=== PATIENT | male | born 1955 | race Caucasian/White ===

== ENCOUNTER 2022-11-15 12:51 | Emergency (ER) | payer MEDICARE, OTHER ==
[2022-11-15] MEDS ORDERED: predniSONE 20 MG TAB ONE (13:35)
[2022-11-15] MEDS ORDERED: Ibuprofen 200 MG TAB ONE (13:35)
== END 2022-11-15 13:40 | disposition home or self-care (01) ==
LOC: ERS 12:51
DX: M43.6 Torticollis (principal); F17.210 Nicotine dependence, cigarettes, uncomplicated; Z79.82 Long term (current) use of aspirin
CPT/HCPCS: 99283; J7512

== ENCOUNTER 2023-01-24 21:28 | Inpatient (IN) | payer MEDICARE, OTHER ==
[~2023-01-24 21:28] MED LIST: Iopamidol 370 76% 100 ML VIAL ONE
[2023-01-24] MEDS ORDERED: fentaNYL 50 mcg/mL 1 mL Vial ONE (22:39)
[2023-01-24] MEDS ORDERED: Ondansetron PF 4 MG/2 ML Vial ONE (23:39)
[2023-01-24 23:59] LABS: #Basophils 0.1 thou/uL (0.0-0.2); #Eosinphils 0.1 thou/uL (0.0-0.7); #Monocytes 1.3 thou/uL (0.11-0.59); #Neutrophils 9.4 thou/uL (1.40-6.50); %Basophils 0.7 % (0.0-1.0); %Eosinophils 1.2 % (0.0-10.0); %Lymphocytes 9.7 % (21.0-51.0); %Monocytes 10.4 % (0.0-10.0); %Neutrophils 76.8 % (42.0-75.0); Hemoglobin 11.4 g/dL (14.0-18.0); Mean Corpuscular HGB CONC 31.1 g/dL (32.0-36.0); Mean Corpuscular Hemoglobin 25.3 pg (27.0-31.0); Mean Corpuscular Volume 81.4 fl (78.0-98.0); Mean Platelet Volume 8.8 fL (7.4-10.4); Platelet Count 462 10x3/uL (130-400); RBC Distribution Width 15.7 % (11.5-14.5); Red Blood Cell (RBC) Count 4.51 mill/uL (4.70-6.10); White Blood Cell (WBC) Count 12.2 10x3/uL (4.8-10.8)
[2023-01-25 00:23] LABS: CRP (Inflammatory) 3.07 mg/dL (= or < 0.5); Lipase 12 U/L (8-78); Magnesium 2.3 mg/dL (1.6-2.6)
[2023-01-25 00:23] LABS: ALT (SGPT) 26 U/L (8-55); AST (SGOT) 15 U/L (5-34); Albumin 3.9 g/dL (3.4-4.8); Alkaline Phosphatase 112 U/L (40-110); Anion Gap 16 mmol/L (10-20); BUN (Urea Nitrogen) 37 mg/dL (8.4-25.7); Bilirubin, Total 0.3 mg/dL (0.2-1.2); Calc. Creatinine Clearance 0 mL/min (70-130); Calcium 10.3 mg/dL (7.8-10.44); Carbon Dioxide 25 mmol/L (23-31); Chloride 100 mmol/L (98-107); Estimated GFR 83; Globulin 3.9 g/dL (2.4-3.5); Glucose 122 mg/dL (80-115); Potassium 4.5 mmol/L (3.5-5.1); Protein, Total 7.8 g/dL (5.8-8.1); Sodium 136 mmol/L (136-145)
[2023-01-25 00:27] LABS: PTT 32.4 sec (22.9-36.1)
[2023-01-25] MEDS ORDERED: Acetaminophen 325 MG TAB PO PRN ×2 (00:34→00:45)
[2023-01-25] MEDS ORDERED: fentaNYL 50 mcg/mL 1 mL Vial SLOW IVP PRN (00:38)
[2023-01-25] MEDS ORDERED: Cyclobenzaprine 10 MG TAB PO PRN (00:39)
[2023-01-25] MEDS ORDERED: Ondansetron ODT 4 MG TAB SL PRN (00:45)
[2023-01-25] MEDS ORDERED: Ondansetron PF 4 MG/2 ML Vial IVP PRN (00:45)
[2023-01-25 01:44] VITALS: BMI 24.6
[2023-01-25] MEDS: HYDROcodone/Acetaminophen 10/325 mg Tablet PO PRN ×2 (02:19→05:32)
[2023-01-25 06:16] LABS: #Basophils 0.1 thou/uL (0.0-0.2); #Eosinphils 0.1 thou/uL (0.0-0.7); #Neutrophils 8.7 thou/uL (1.40-6.50); %Basophils 0.7 % (0.0-1.0); %Eosinophils 0.6 % (0.0-10.0); Hemoglobin 11.5 g/dL (14.0-18.0); Mean Corpuscular HGB CONC 30.9 g/dL (32.0-36.0); Mean Corpuscular Volume 80.9 fl (78.0-98.0); Mean Platelet Volume 8.8 fL (7.4-10.4); Platelet Count 447 10x3/uL (130-400); RBC Distribution Width 15.9 % (11.5-14.5); White Blood Cell (WBC) Count 11.1 10x3/uL (4.8-10.8)
[2023-01-25] MEDS: Ondansetron PF 4 MG/2 ML Vial IVP PRN ×2 (06:30→16:55)
[2023-01-25 06:42] LABS: Anion Gap 14 mmol/L (10-20); BUN (Urea Nitrogen) 30 mg/dL (8.4-25.7); Calc. Creatinine Clearance 88 mL/min (70-130); Calcium 10.3 mg/dL (7.8-10.44); Carbon Dioxide 27 mmol/L (23-31); Chloride 99 mmol/L (98-107); Estimated GFR 95; Glucose 107 mg/dL (80-115); Potassium 4.6 mmol/L (3.5-5.1); Sodium 135 mmol/L (136-145)
[2023-01-25] MEDS ORDERED: Bicitra 30 ML UDCUP ONE (09:50)
[2023-01-25] MEDS ORDERED: Famotidine/PF 20 mg/2ml Vial ONE ×2 (09:50→10:13)
[2023-01-25] MEDS ORDERED: Sodium Chloride 0.9% 100 ML ONE (09:57)
[2023-01-25] MEDS ORDERED: CEFAZOLIN 2 GM VIAL ONE (09:57)
[2023-01-25] MEDS ORDERED: Ondansetron PF 4 MG/2 ML Vial ONE ×2 (09:59→10:32)
[2023-01-25] MEDS ORDERED: Promethazine HCl 25 MG/ML VIAL ONE (09:59)
[2023-01-25] MEDS ORDERED: Vancomycin 1 GM VIAL ONE (10:04)
[2023-01-25] MEDS ORDERED: Bacitracin Zinc Ointment 30 gm TUBE ONE (10:04)
[2023-01-25] MEDS ORDERED: Thrombin 5000 UNITS/5 ML VIAL ONE (10:04)
[2023-01-25] MEDS ORDERED: Ketamine 50 MG/ML (10ML VIAL) ONE (10:12)
[2023-01-25] MEDS ORDERED: Midazolam HCl 2 mg/2 ml Vial ONE (10:12)
[2023-01-25] MEDS ORDERED: Vasopressin 20 UNITS/ML VIAL ONE (10:13)
[2023-01-25] MEDS ORDERED: SUGAMMADEX SODIUM 200 MG/2 ML VIAL ONE (10:13)
[2023-01-25] MEDS ORDERED: Ketorolac Tromethamine 30 MG/ML VIAL ONE (10:32)
[2023-01-25] MEDS ORDERED: Rocuronium Bromide 10 MG/ML (10ML VIAL) ONE (10:32)
[2023-01-25] MEDS ORDERED: Vecuronium 10 MG VIAL ONE (10:32)
[2023-01-25] MEDS ORDERED: ePHEDrine Sulfate 50 MG/10 ML VIAL ONE (10:32)
[2023-01-25] MEDS ORDERED: PHENYLEPHRINE-NS 100 MCG/ML 10 ML SYRINGE ONE ×2 (10:32→11:43)
[2023-01-25] MEDS ORDERED: Dexamethasone 20 MG/5 ML VIAL ONE (10:32)
[2023-01-25] MEDS ORDERED: Promethazine HCl 25 MG/ML VIAL IVPB PRN (10:48)
[2023-01-25] MEDS ORDERED: Mineral Oil ENEMA PR PRN (10:51)
[2023-01-25] MEDS ORDERED: Milk Of Magnesia 30 ML UDCUP PO PRN (10:51)
[2023-01-25] MEDS ORDERED: Bisacodyl 10 MG SUPP PR PRN (10:51)
[2023-01-25] MEDS ORDERED: Benzocaine/Menthol 1 LOZ LOZ PO PRN (10:52)
[2023-01-25] MEDS ORDERED: Phenol 118 ML BOT PO PRN (10:52)
[2023-01-25] MEDS ORDERED: hydrALAZINE 20 MG/ML VIAL SLOW IVP PRN (10:54)
[2023-01-25] MEDS ORDERED: Promethazine HCl 12.5 MG in Sodium Chloride 0.9% 50 ML IVPB PRN (11:07)
[2023-01-25] MEDS ORDERED: Phenylephrine 10 MG/ML VIAL ONE (11:44)
[2023-01-25] MEDS ORDERED: fentaNYL 50 mcg/mL 1 mL Vial ONE ×4 (13:25→16:11)
[2023-01-25] MEDS ORDERED: Ondansetron HCl/PF 4 MG/2 ML Vial IVP PRN (14:46)
[2023-01-25] MEDS ORDERED: Promethazine HCl 25 MG/ML VIAL IM PRN (14:46)
[2023-01-25] MEDS ORDERED: FENTANYL 500 MCG/10 ML VIAL 2,000 MCG in Sodium Chloride 0.9% 60 ML IV PRN (15:19)
[2023-01-25] MEDS ORDERED: Fentanyl CADD 100 ML IVPB PRN (15:34)
[2023-01-25] MEDS: Sodium Chloride 0.9% 1,000 ML IV SCH (16:04)
[2023-01-25] MEDS ORDERED: CEFAZOLIN 2 GM in Sodium Chloride 0.9% 100 ML IVPB SCH (18:00)
[2023-01-25 18:18] LABS: Hemoglobin 10.4 g/dL (14.0-18.0)
[2023-01-25] MEDS: Atorvastatin Calcium 40 MG TAB PO SCH (20:33)
[2023-01-25] MEDS: Docusate Sodium 100 MG/10 ML UDCUP PO SCH (20:34)
[2023-01-25] MEDS: CEFAZOLIN 2 GM in Sodium Chloride 0.9% 100 ML IVPB SCH (23:08)
[2023-01-26] MEDS: Sodium Chloride 0.9% 1,000 ML IV SCH ×2 (03:15→15:07)
[2023-01-26] MEDS: Dexamethasone 4 mg/ml Vial SLOW IVP SCH ×3 (04:41→17:00)
[2023-01-26 05:24] LABS: #Monocytes 0.9 thou/uL (0.11-0.59); #Neutrophils 15.3 thou/uL (1.40-6.50); %Basophils 0.1 % (0.0-1.0); %Lymphocytes 3.9 % (21.0-51.0); %Monocytes 5.3 % (0.0-10.0); %Neutrophils 90.1 % (42.0-75.0); Hemoglobin 9.8 g/dL (14.0-18.0); Mean Corpuscular HGB CONC 31.4 g/dL (32.0-36.0); Mean Corpuscular Hemoglobin 25.5 pg (27.0-31.0); Mean Corpuscular Volume 81.3 fl (78.0-98.0); Mean Platelet Volume 8.7 fL (7.4-10.4); Platelet Count 381 10x3/uL (130-400); Red Blood Cell (RBC) Count 3.84 mill/uL (4.70-6.10)
[2023-01-26 05:47] LABS: Anion Gap 14 mmol/L (10-20); BUN (Urea Nitrogen) 28 mg/dL (8.4-25.7); Calc. Creatinine Clearance 84 mL/min (70-130); Calcium 9.7 mg/dL (7.8-10.44); Carbon Dioxide 25 mmol/L (23-31); Chloride 102 mmol/L (98-107); Estimated GFR 94; Glucose 146 mg/dL (80-115); Potassium 4.7 mmol/L (3.5-5.1); Sodium 136 mmol/L (136-145)
[2023-01-26] MEDS ORDERED: HYDROcodone/Acetaminophen 10/325 mg Tablet PO SCH (06:00)
[2023-01-26] MEDS ORDERED: Ketorolac Tromethamine 30 MG/ML VIAL IVP SCH (06:00)
[2023-01-26] MEDS: Pantoprazole 40 MG VIAL IVP SCH (09:14)
[2023-01-26] MEDS: CEFAZOLIN 2 GM in Sodium Chloride 0.9% 100 ML IVPB SCH ×2 (09:14→15:06)
[2023-01-26] MEDS: Docusate Sodium 100 MG/10 ML UDCUP PO SCH ×2 (09:24→21:35)
[2023-01-26] MEDS ORDERED: HYDROcodone/Acetaminophen 10/325 mg Tablet PO PRN ×4 (10:24→10:31)
[2023-01-26] MEDS ORDERED: Fentanyl 100 MCG/2 ML VIAL SLOW IVP PRN (10:31)
[2023-01-26] MEDS: Atorvastatin Calcium 40 MG TAB PO SCH (21:34)
[2023-01-27] MEDS: Dexamethasone 4 mg/ml Vial SLOW IVP SCH ×2 (00:06→05:55)
[2023-01-27] MEDS: CEFAZOLIN 2 GM in Sodium Chloride 0.9% 100 ML IVPB SCH ×3 (00:06→15:28)
[2023-01-27] MEDS: Sodium Chloride 0.9% 1,000 ML IV SCH ×2 (04:19→14:53)
[2023-01-27 06:40] LABS: #Monocytes 0.9 thou/uL (0.11-0.59); #Neutrophils 17.1 thou/uL (1.40-6.50); %Basophils 0.1 % (0.0-1.0); %Lymphocytes 4.1 % (21.0-51.0); %Monocytes 4.7 % (0.0-10.0); %Neutrophils 90.5 % (42.0-75.0); Hemoglobin 10.2 g/dL (14.0-18.0); Mean Corpuscular HGB CONC 31.3 g/dL (32.0-36.0); Mean Corpuscular Hemoglobin 25.4 pg (27.0-31.0); Mean Corpuscular Volume 81.3 fl (78.0-98.0); Platelet Count 459 10x3/uL (130-400); RBC Distribution Width 16.1 % (11.5-14.5); Red Blood Cell (RBC) Count 4.01 mill/uL (4.70-6.10); White Blood Cell (WBC) Count 18.9 10x3/uL (4.8-10.8)
[2023-01-27 07:06] LABS: Anion Gap 14 mmol/L (10-20); BUN (Urea Nitrogen) 20 mg/dL (8.4-25.7); Calc. Creatinine Clearance 91 mL/min (70-130); Calcium 10.1 mg/dL (7.8-10.44); Carbon Dioxide 26 mmol/L (23-31); Chloride 100 mmol/L (98-107); Estimated GFR 96; Glucose 133 mg/dL (80-115); Potassium 4.3 mmol/L (3.5-5.1); Sodium 136 mmol/L (136-145)
[2023-01-27] MEDS: Docusate Sodium 100 MG/10 ML UDCUP PO SCH ×2 (08:38→21:33)
[2023-01-27] MEDS: Pantoprazole 40 MG VIAL IVP SCH (08:38)
[2023-01-27] MEDS: Dexamethasone 4 MG TAB PO SCH ×2 (12:11→17:22)
[2023-01-27] MEDS: Atorvastatin Calcium 40 MG TAB PO SCH (21:12)
[2023-01-27] MEDS: Docusate 100 MG CAP PO PRN (23:04)
[2023-01-28] MEDS: CEFAZOLIN 2 GM in Sodium Chloride 0.9% 100 ML IVPB SCH (00:51)
[2023-01-28] MEDS: Dexamethasone 4 MG TAB PO SCH ×3 (00:52→11:27)
[2023-01-28] MEDS: Sodium Chloride 0.9% 1,000 ML IV SCH (06:01)
[2023-01-28 08:11] VITALS: BP 124/84; TEMP 98
[2023-01-28] MEDS: Docusate Sodium 100 MG/10 ML UDCUP PO SCH (09:31)
[2023-01-28] MEDS: Docusate 100 MG CAP PO PRN (09:32)
[2023-01-28] MEDS: Pantoprazole 40 MG VIAL IVP SCH (09:33)
== END 2023-01-28 12:53 | disposition home or self-care (01) | DRG 519 ==
LOC: ERS 21:28 → T4-B 01-25 00:23
PROVIDERS: ADMIT Internal Medicine; ATTEND Internal Medicine
PROC: 00BW0ZZ Excision of Cervical Spinal Cord, Open Approach (ICD-10-PCS; principal; 2023-01-25)
PROC: 01N10ZZ Release Cervical Nerve, Open Approach (ICD-10-PCS; 2023-01-25)
PROC: 0PH304Z Insertion of Internal Fixation Device into Cervical Vertebra, Open Approach (ICD-10-PCS; 2023-01-25)
PROC: 0PB30ZZ Excision of Cervical Vertebra, Open Approach (ICD-10-PCS; 2023-01-25)
PROC: 00NW0ZZ Release Cervical Spinal Cord, Open Approach (ICD-10-PCS; 2023-01-25)
DX: M84.58XA Pathological fracture in neoplastic disease, other specified site, initial encounter for fracture (principal); C34.90 Malignant neoplasm of unspecified part of unspecified bronchus or lung; C79.51 Secondary malignant neoplasm of bone; E87.1 Hypo-osmolality and hyponatremia; G95.29 Other cord compression; M48.02 Spinal stenosis, cervical region; D63.0 Anemia in neoplastic disease; E78.5 Hyperlipidemia, unspecified; Z66 Do not resuscitate; F17.210 Nicotine dependence, cigarettes, uncomplicated; Z98.890 Other specified postprocedural states; Z88.5 Allergy status to narcotic agent; Z88.8 Allergy status to other drugs, medicaments and biological substances; Z79.82 Long term (current) use of aspirin; Z79.899 Other long term (current) drug therapy; Z80.1 Family history of malignant neoplasm of trachea, bronchus and lung; Z80.52 Family history of malignant neoplasm of bladder; Z80.8 Family history of malignant neoplasm of other organs or systems; M54.12 Radiculopathy, cervical region
CPT/HCPCS: 36415; 70491; 71045; 72141; 80048; 80053; 82248; 83605; 83615; 83690; 83735; 84100; 84439; 84443; 84550; 85025; 85610; 85652; 85730; 86140; 86850; 86900; 86901; 88307; 88311; 88341; 88342; 93970; 96374; 96375; C1713; C1776; C9113; J1100; J1885; J2250; J2370; J2405; J2550; J3010; J3370; J3490; J7050; J8540; Q9967; S0028

== ENCOUNTER 2023-02-06 12:07 | Outpatient (CLI) | payer MEDICARE, OTHER | END 2023-02-06 12:08 | disposition home or self-care (01) | LOC: CT 12:07 | PROVIDERS: ATTEND Internal Medicine Hematology & Oncology | DX: C34.11 Malignant neoplasm of upper lobe, right bronchus or lung (principal); C79.51 Secondary malignant neoplasm of bone; I26.99 Other pulmonary embolism without acute cor pulmonale; R06.02 Shortness of breath; R59.1 Generalized enlarged lymph nodes; M89.9 Disorder of bone, unspecified | CPT/HCPCS: 71275; Q9967 ==

== ENCOUNTER 2023-02-22 16:18 | Inpatient (IN) | payer MEDICARE, OTHER ==
[~2023-02-22 16:18] MED LIST changes: -Iopamidol 370 76% 100 ML VIAL ONE; +Iopamidol-370 76% 500 ML MDV (1 ML CHARGE) ONE
[2023-02-22] MEDS ORDERED: Ondansetron PF 4 MG/2 ML Vial IVP PRN (18:38)
[2023-02-22] MEDS ORDERED: traMADol HCl 50 MG TAB PO PRN (18:38)
[2023-02-22] MEDS ORDERED: Acetaminophen 325 MG TAB PO PRN (18:38)
[2023-02-22] MEDS ORDERED: HYDROcodone/Acetaminophen 7.5/325 mg Tablet PO PRN (18:38)
[2023-02-22 18:41] VITALS: BMI 25.0
[2023-02-22 19:11] LABS: Hematocrit 27.4 % (42.0-52.0); Hemoglobin 8.6 g/dL (14.0-18.0); Mean Corpuscular HGB CONC 31.4 g/dL (32.0-36.0); Mean Corpuscular Hemoglobin 26.1 pg (27.0-31.0); Mean Corpuscular Volume 83.3 fl (78.0-98.0); Mean Platelet Volume 8.7 fL (7.4-10.4); Platelet Count 343 10x3/uL (130-400); RBC Distribution Width 17.5 % (11.5-14.5); Red Blood Cell (RBC) Count 3.29 mill/uL (4.70-6.10); White Blood Cell (WBC) Count 25.7 10x3/uL (4.8-10.8)
[2023-02-22] MEDS ORDERED: Vancomycin 1.5 GRAM/300 ML BAG 1.5 GM in Premix Bag 1 BAG IVPB SCH (19:15)
[2023-02-22 19:16] LABS: Delete Auto Diff?? YES; Manual Diff?? YES
[2023-02-22] MEDS: Sodium Chloride 0.9% 1,000 ML IV SCH (19:21)
[2023-02-22] MEDS: Acetaminophen/Codeine 30-300mg Tablet PO PRN (19:24)
[2023-02-22 19:41] LABS: Anion Gap 12 mmol/L (10-20); BUN (Urea Nitrogen) 18 mg/dL (8.4-25.7); Calc. Creatinine Clearance 88 mL/min (70-130); Carbon Dioxide 23 mmol/L (23-31); Chloride 100 mmol/L (98-107); Estimated GFR 94; Glucose 180 mg/dL (80-115); Potassium 4.5 mmol/L (3.5-5.1); Sodium 130 mmol/L (136-145)
[2023-02-22 19:42] LABS: INR-International Normal Ratio 1.1; Prothrombin Time 14.3 sec (12.0-14.7)
[2023-02-22 19:43] LABS: PTT 34.6 sec (22.9-36.1)
[2023-02-22 19:57] LABS: Anisocytosis SLIGHT = 6-15 cells HPF (0-5); Band 17 % (5-11); Burr Cells SLIGHT = 2-5 cells HPF (0-1); CellaVision Operator ID LAB.KB; Dohle Bodies SLIGHT; Hypochromia SLIGHT = 6-15 cells HPF (0-5); Lymphocytes 2 % (21-51); Macrocytosis SLIGHT = 6-15 cells HPF (0-5); Monocytes 4 % (0-10); Myelocyte 1 % (0-0); Neutrophil 77 % (42-75); Platelet Adequacy Comment Platelets Normal; Poikilocytosis SLIGHT = 6-15 cells HPF (0-5); Polychromasia SLIGHT = 2-3 cells HPF (0-2); Total Cell Count 103; Toxic Granulation SLIGHT
[2023-02-22] MEDS: Cefepime 2 GM in Sodium Chloride 0.9% 100 ML IVPB SCH (20:41)
[2023-02-22] MEDS: metroNIDAZOLE 500 MG in Premix Bag 1 BAG IVPB SCH (22:50)
[2023-02-23] MEDS: metroNIDAZOLE 500 MG in Premix Bag 1 BAG IVPB SCH ×3 (06:35→23:00)
[2023-02-23] MEDS: Cefepime 2 GM in Sodium Chloride 0.9% 100 ML IVPB SCH ×2 (08:15→21:15)
[2023-02-23] MEDS: Vancomycin 1 GM in Premix Bag 1 BAG IVPB SCH ×2 (08:15→20:10)
[2023-02-23] MEDS: Sodium Chloride 0.9% 1,000 ML IV SCH ×2 (08:16→20:16)
[2023-02-23] MEDS ORDERED: metroNIDAZOLE 500 MG/100 ML BAG ONE (13:18)
[2023-02-23] MEDS ORDERED: Thrombin 5000 UNITS/5 ML VIAL ONE ×2 (14:05)
[2023-02-23] MEDS ORDERED: Vancomycin 500 MG VIAL (PEDI) ONE ×2 (14:05→14:06)
[2023-02-23] MEDS ORDERED: fentaNYL 50 mcg/mL 1 mL Vial ONE ×3 (14:31→16:07)
[2023-02-23] MEDS ORDERED: PROPOFOL 200 MG/20 ML VIAL ONE (14:43)
[2023-02-23] MEDS ORDERED: Glycopyrrolate 0.2 MG/ML 5 ML SYRINGE ONE (14:43)
[2023-02-23] MEDS ORDERED: Rocuronium Bromide 10 MG/ML (10ML VIAL) ONE (14:43)
[2023-02-23] MEDS ORDERED: Lidocaine 1% PF 5 ML VIAL ONE (14:43)
[2023-02-23] MEDS ORDERED: Ondansetron PF 4 MG/2 ML Vial ONE (14:43)
[2023-02-23] MEDS ORDERED: NEOSTIGMINE 3 MG/3 ML SYR 3 MG/3 ML SYRINGE ONE (14:43)
[2023-02-23] MEDS ORDERED: Ondansetron HCl/PF 4 MG/2 ML Vial IVP PRN (15:56)
[2023-02-23] MEDS ORDERED: Promethazine HCl 25 MG/ML VIAL IM PRN (15:56)
[2023-02-23] MEDS ORDERED: fentaNYL 50 mcg/mL 1 mL Vial SLOW IVP PRN (16:09)
[2023-02-23] MEDS ORDERED: tiZANidine HCl 4 MG TAB PO PRN (16:11)
[2023-02-23] MEDS ORDERED: Atorvastatin Calcium 40 MG TAB PO SCH (21:00)
[2023-02-24] MEDS: Acetaminophen/Codeine 30-300mg Tablet PO PRN (05:27)
[2023-02-24] MEDS: metroNIDAZOLE 500 MG in Premix Bag 1 BAG IVPB SCH (05:27)
[2023-02-24 07:47] VITALS: TEMP 97.7
[2023-02-24 08:11] LABS: Hematocrit 26.3 % (42.0-52.0); Hemoglobin 8.1 g/dL (14.0-18.0); Mean Corpuscular HGB CONC 30.8 g/dL (32.0-36.0); Mean Corpuscular Hemoglobin 25.8 pg (27.0-31.0); Mean Corpuscular Volume 83.8 fl (78.0-98.0); Mean Platelet Volume 9.1 fL (7.4-10.4); Platelet Count 356 10x3/uL (130-400); RBC Distribution Width 17.5 % (11.5-14.5); Red Blood Cell (RBC) Count 3.14 mill/uL (4.70-6.10); White Blood Cell (WBC) Count 25.5 10x3/uL (4.8-10.8)
[2023-02-24 08:28] LABS: Delete Auto Diff?? YES; Manual Diff?? YES
[2023-02-24 08:36] LABS: Vancomycin, Trough 11.1 ug/mL
[2023-02-24 08:37] LABS: Anion Gap 13 mmol/L (10-20); BUN (Urea Nitrogen) 15 mg/dL (8.4-25.7); Calc. Creatinine Clearance 97 mL/min (70-130); Calcium 8.1 mg/dL (7.8-10.44); Carbon Dioxide 22 mmol/L (23-31); Chloride 102 mmol/L (98-107); Estimated GFR 97; Glucose 156 mg/dL (80-115); Sodium 132 mmol/L (136-145)
[2023-02-24] MEDS: Vancomycin 1 GM in Premix Bag 1 BAG IVPB SCH (08:38)
[2023-02-24] MEDS: Cefepime 2 GM in Sodium Chloride 0.9% 100 ML IVPB SCH (08:39)
[2023-02-24 08:54] LABS: Band 29 % (5-11); Burr Cells SLIGHT = 2-5 cells HPF (0-1); CellaVision Operator ID LAB.GE; Monocytes 8 % (0-10); Neutrophil 63 % (42-75); Platelet Adequacy Comment Platelets Normal; Polychromasia SLIGHT = 2-3 cells HPF (0-2); Total Cell Count 100; Toxic Granulation SLIGHT
[2023-02-24 12:01] VITALS: BP 123/71
[2023-02-24] MEDS: Sodium Chloride 0.9% 1,000 ML IV SCH (12:13)
== END 2023-02-24 12:14 | disposition home or self-care (01) | DRG 863 ==
LOC: T4-A 18:35
PROVIDERS: ADMIT Surgery; ATTEND Surgery
PROC: 0J950ZZ Drainage of Left Neck Subcutaneous Tissue and Fascia, Open Approach (ICD-10-PCS; principal; 2023-02-23)
DX: T81.41XA Infection following a procedure, superficial incisional surgical site, initial encounter (principal); C34.90 Malignant neoplasm of unspecified part of unspecified bronchus or lung; C79.51 Secondary malignant neoplasm of bone; T81.31XA Disruption of external operation (surgical) wound, not elsewhere classified, initial encounter; D64.9 Anemia, unspecified; E78.5 Hyperlipidemia, unspecified; Z98.890 Other specified postprocedural states; Z87.891 Personal history of nicotine dependence; Z88.6 Allergy status to analgesic agent
CPT/HCPCS: 36415; 36416; 70491; 80048; 80202; 85025; 85610; 85652; 85730; 86140; 86850; 86900; 86901; 87070; 87077; 87186; 87205; C1713; J0692; J2405; J2704; J3010; J3370; J3370-JW; J3371; J3490; J7050; Q9967

== ENCOUNTER 2023-03-17 10:33 | Day surgery (SDC) | payer MEDICARE, OTHER ==
[2023-03-15 14:03] VITALS: BMI 24.6
[2023-03-17 12:03] LABS: Hematocrit 28.1 % (42.0-52.0); Hemoglobin 8.8 g/dL (14.0-18.0); Mean Corpuscular HGB CONC 31.3 g/dL (32.0-36.0); Mean Corpuscular Hemoglobin 26.6 pg (27.0-31.0); Mean Corpuscular Volume 84.9 fl (78.0-98.0); Mean Platelet Volume 9.5 fL (7.4-10.4); Platelet Count 237 10x3/uL (130-400); RBC Distribution Width 18.6 % (11.5-14.5); Red Blood Cell (RBC) Count 3.31 mill/uL (4.70-6.10); White Blood Cell (WBC) Count 14.5 10x3/uL (4.8-10.8)
[2023-03-17 12:21] LABS: Delete Auto Diff?? YES; Manual Diff?? YES
[2023-03-17 12:27] LABS: ALT (SGPT) 19 U/L (8-55); AST (SGOT) 19 U/L (5-34); Alkaline Phosphatase 204 U/L (40-110); Anion Gap 14 mmol/L (10-20); BUN (Urea Nitrogen) 14 mg/dL (8.4-25.7); Bilirubin, Total 0.5 mg/dL (0.2-1.2); Calc. Creatinine Clearance 93 mL/min (70-130); Calcium 10.1 mg/dL (7.8-10.44); Carbon Dioxide 24 mmol/L (23-31); Chloride 99 mmol/L (98-107); Estimated GFR 97; Glucose 94 mg/dL (80-115); Potassium 3.8 mmol/L (3.5-5.1); Sodium 133 mmol/L (136-145)
[2023-03-17] MEDS ORDERED: Bupivacaine 0.25% HCL 30 ML VIAL ONE (12:47)
[2023-03-17] MEDS ORDERED: EPINEPHrine 1 MG/ML AMP ONE (12:47)
[2023-03-17] MEDS ORDERED: Lidocaine 2% PF 5 ML VIAL ONE (12:47)
[2023-03-17 12:50] LABS: Anisocytosis SLIGHT = 6-15 cells HPF (0-5); Band 11 % (5-11); Burr Cells SLIGHT = 2-5 cells HPF (0-1); CellaVision Operator ID LAB.KB; Hypochromia SLIGHT = 6-15 cells HPF (0-5); Lymphocytes 6 % (21-51); Monocytes 8 % (0-10); Neutrophil 73 % (42-75); Platelet Adequacy Comment Platelets Normal; Poikilocytosis SLIGHT = 6-15 cells HPF (0-5); Polychromasia SLIGHT = 2-3 cells HPF (0-2); Total Cell Count 101
[2023-03-17] MEDS ORDERED: Sodium Chloride 0.9% 100 ML ONE (12:54)
[2023-03-17] MEDS ORDERED: CEFAZOLIN 2 GM VIAL ONE (12:54)
[2023-03-17] MEDS ORDERED: fentaNYL 50 mcg/mL 1 mL Vial ONE (12:58)
[2023-03-17] MEDS ORDERED: Propofol 500 MG/50 ML VIAL ONE (12:58)
[2023-03-17] MEDS ORDERED: Ondansetron PF 4 MG/2 ML Vial ONE ×2 (12:58→13:05)
[2023-03-17] MEDS ORDERED: Esmolol 100 MG/10 ML VIAL ONE (12:58)
[2023-03-17] MEDS ORDERED: PROPOFOL 200 MG/20 ML VIAL ONE (13:05)
[2023-03-17] MEDS ORDERED: Lidocaine 1% PF 5 ML VIAL ONE (13:05)
[2023-03-17] MEDS ORDERED: Ketorolac Tromethamine 30 MG/ML VIAL ONE (13:05)
[2023-03-17] MEDS ORDERED: Dexamethasone 20 MG/5 ML VIAL ONE (13:05)
== END 2023-03-17 15:00 | disposition home or self-care (01) ==
LOC: SDC 10:33
PROVIDERS: ATTEND Surgery
PROC: 0JH63WZ Insertion of Totally Implantable Vascular Access Device into Chest Subcutaneous Tissue and Fascia, Percutaneous Approach (ICD-10-PCS; principal; 2023-03-17)
DX: C34.90 Malignant neoplasm of unspecified part of unspecified bronchus or lung (principal); E78.00 Pure hypercholesterolemia, unspecified; Z88.5 Allergy status to narcotic agent; Z79.899 Other long term (current) drug therapy
CPT/HCPCS: 36561; 71045; 80053; 85025; C1788; J3010; J0171; J1100; J1642; J1885; J2001; J2405; J2704; J3490; S0020

== ENCOUNTER 2023-04-13 11:00 | Outpatient (CLI) | payer MEDICARE, OTHER | END 2023-04-13 11:01 | disposition home or self-care (01) | LOC: PET 11:00 | PROVIDERS: ATTEND Internal Medicine Hematology & Oncology | DX: C34.11 Malignant neoplasm of upper lobe, right bronchus or lung (principal); C79.51 Secondary malignant neoplasm of bone | CPT/HCPCS: 78815; A9552 ==

== ENCOUNTER 2023-05-29 11:37 | Inpatient (IN) | payer MEDICARE, OTHER ==
[~2023-05-29 11:37] MED LIST changes: +Magnevist 469MG/ML 20 ML VIAL ONE
[2023-05-29 12:44] LABS: #Basophils 0.1 thou/uL (0.0-0.2); #Eosinphils 0.1 thou/uL (0.0-0.7); #Monocytes 0.8 thou/uL (0.11-0.59); #Neutrophils 9.4 thou/uL (1.40-6.50); %Basophils 0.6 % (0.0-1.0); %Eosinophils 0.9 % (0.0-10.0); %Lymphocytes 9.2 % (21.0-51.0); %Monocytes 6.6 % (0.0-10.0); %Neutrophils 82.3 % (42.0-75.0); Hematocrit 26.4 % (42.0-52.0); Hemoglobin 8.1 g/dL (14.0-18.0); Mean Corpuscular HGB CONC 30.7 g/dL (32.0-36.0); Mean Corpuscular Volume 91.3 fl (78.0-98.0); Mean Platelet Volume 8.6 fL (7.4-10.4); Platelet Count 352 10x3/uL (130-400); RBC Distribution Width 17.1 % (11.5-14.5); Red Blood Cell (RBC) Count 2.89 mill/uL (4.70-6.10); White Blood Cell (WBC) Count 11.5 10x3/uL (4.8-10.8)
[2023-05-29 13:00] LABS: ALT (SGPT) 9 U/L (8-55); AST (SGOT) 14 U/L (5-34); Albumin 4.1 g/dL (3.4-4.8); Alkaline Phosphatase 139 U/L (40-110); Anion Gap 13 mmol/L (10-20); BUN (Urea Nitrogen) 17 mg/dL (8.4-25.7); Bilirubin, Total 0.3 mg/dL (0.2-1.2); Calc. Creatinine Clearance 0 mL/min (70-130); Calcium 9.3 mg/dL (7.8-10.44); Carbon Dioxide 25 mmol/L (23-31); Chloride 104 mmol/L (98-107); Estimated GFR 91; Globulin 3.5 g/dL (2.4-3.5); Glucose 104 mg/dL (80-115); Potassium 4.1 mmol/L (3.5-5.1); Protein, Total 7.6 g/dL (5.8-8.1); Sodium 138 mmol/L (136-145)
[2023-05-29] MEDS ORDERED: Acetaminophen 500 MG TAB ONE (13:01)
[2023-05-29 13:10] LABS: Troponin I Less than 0.010 ng/mL (< 0.028)
[2023-05-29] MEDS ORDERED: Ampicillin/Sulbactam 3 GM VIAL ONE (14:22)
[2023-05-29] MEDS ORDERED: Sodium Chloride 0.9% 100 ML ONE (14:23)
[2023-05-29] MEDS ORDERED: Labetalol HCl 100 MG/20 ML VIAL SLOW IVP PRN (15:45)
[2023-05-29] MEDS ORDERED: Acetaminophen 325 MG TAB PO PRN (15:45)
[2023-05-29 15:59] LABS: Lactic Acid 0.9 mmol/L (0.5-2.2)
[2023-05-29 16:56] VITALS: BMI 23.8
[2023-05-29] MEDS ORDERED: Dexamethasone 4 mg/ml Vial ONE (17:02)
[2023-05-29] MEDS: Dexamethasone 4 mg/ml Vial SLOW IVP SCH (17:12)
[2023-05-30] MEDS ORDERED: Dexamethasone 10 MG/ML VIAL ONE ×3 (00:18→08:48)
[2023-05-30] MEDS: Dexamethasone 4 mg/ml Vial SLOW IVP SCH ×5 (00:22→20:48)
[2023-05-30 06:12] LABS: Anion Gap 14 mmol/L (10-20); BUN (Urea Nitrogen) 14 mg/dL (8.4-25.7); Calc. Creatinine Clearance 89 mL/min (70-130); Calcium 9.2 mg/dL (7.8-10.44); Carbon Dioxide 22 mmol/L (23-31); Chloride 105 mmol/L (98-107); Estimated GFR 95; Glucose 152 mg/dL (80-115); Potassium 4.5 mmol/L (3.5-5.1); Sodium 136 mmol/L (136-145)
[2023-05-30 06:40] LABS: #Monocytes 0.1 thou/uL (0.11-0.59); #Neutrophils 9.1 thou/uL (1.40-6.50); %Basophils 0.3 % (0.0-1.0); %Lymphocytes 5.6 % (21.0-51.0); %Monocytes 0.5 % (0.0-10.0); %Neutrophils 93.1 % (42.0-75.0); Hematocrit 25.8 % (42.0-52.0); Hemoglobin 7.8 g/dL (14.0-18.0); Mean Corpuscular HGB CONC 30.2 g/dL (32.0-36.0); Mean Corpuscular Hemoglobin 27.7 pg (27.0-31.0); Mean Corpuscular Volume 91.5 fl (78.0-98.0); Mean Platelet Volume 9.2 fL (7.4-10.4); Platelet Count 392 10x3/uL (130-400); RBC Distribution Width 17.2 % (11.5-14.5); Red Blood Cell (RBC) Count 2.82 mill/uL (4.70-6.10); White Blood Cell (WBC) Count 9.7 10x3/uL (4.8-10.8)
[2023-05-31] MEDS: Dexamethasone 4 mg/ml Vial SLOW IVP SCH ×2 (04:31→08:31)
[2023-05-31 12:13] VITALS: BP 144/82; TEMP 97.3
== END 2023-05-31 13:25 | disposition home or self-care (01) | DRG 607 ==
LOC: ERS 11:37 → ERHOLD 15:07 → SURG A 05-30 16:42
PROVIDERS: ADMIT Internal Medicine; ATTEND Internal Medicine
DX: R22.1 Localized swelling, mass and lump, neck (principal); C34.90 Malignant neoplasm of unspecified part of unspecified bronchus or lung; Z88.8 Allergy status to other drugs, medicaments and biological substances; T45.1X5A Adverse effect of antineoplastic and immunosuppressive drugs, initial encounter; Z79.82 Long term (current) use of aspirin; Z79.899 Other long term (current) drug therapy; D64.9 Anemia, unspecified; Z98.890 Other specified postprocedural states; E78.5 Hyperlipidemia, unspecified; Z87.891 Personal history of nicotine dependence; Z83.3 Family history of diabetes mellitus; Z80.1 Family history of malignant neoplasm of trachea, bronchus and lung; Z80.52 Family history of malignant neoplasm of bladder
CPT/HCPCS: 36415; 70491; 72156; 80048; 80053; 83605; 84443; 84484; 85025; 86140; 87040; 93005; 96365; A9579; J0295; J1100; J1650; J3490; Q9967

== ENCOUNTER 2023-06-06 07:36 | Inpatient (IN) | payer MEDICARE, OTHER ==
[2023-06-06] MEDS ORDERED: Rocuronium Bromide 10 MG/ML (10ML VIAL) ONE ×2 (10:15→10:41)
[2023-06-06] MEDS ORDERED: Ondansetron PF 4 MG/2 ML Vial ONE ×2 (10:15→10:41)
[2023-06-06] MEDS ORDERED: PROPOFOL 200 MG/20 ML VIAL ONE (10:15)
[2023-06-06] MEDS ORDERED: Lidocaine 1% PF 5 ML VIAL ONE ×2 (10:15→10:41)
[2023-06-06] MEDS ORDERED: ePHEDrine Sulfate 50 MG/10 ML VIAL ONE ×2 (10:15→12:22)
[2023-06-06] MEDS ORDERED: Dexamethasone 20 MG/5 ML VIAL ONE ×3 (10:15→12:18)
[2023-06-06] MEDS ORDERED: PHENYLEPHRINE-NS 100 MCG/ML 10 ML SYRINGE ONE ×3 (10:15→12:09)
[2023-06-06] MEDS ORDERED: fentaNYL PF 100 MCG/2 ML SYRINGE ONE (10:40)
[2023-06-06] MEDS ORDERED: PROPOFOL 20 ML ONE (10:41)
[2023-06-06] MEDS ORDERED: CEFAZOLIN 2 GM VIAL ONE (10:45)
[2023-06-06] MEDS ORDERED: Sodium Chloride 0.9% 100 ML ONE (10:45)
[2023-06-06] MEDS ORDERED: SUGAMMADEX SODIUM 200 MG/2 ML VIAL ONE (12:39)
[2023-06-06] MEDS ORDERED: Milk Of Magnesia 30 ML UDCUP PO PRN (12:58)
[2023-06-06] MEDS ORDERED: Acetaminophen 325 MG TAB PO PRN (12:58)
[2023-06-06] MEDS ORDERED: traMADol HCl 50 MG TAB PO PRN (12:58)
[2023-06-06] MEDS ORDERED: Ondansetron PF 4 MG/2 ML Vial IVP PRN (12:58)
[2023-06-06] MEDS ORDERED: HYDROcodone/Acetaminophen 7.5/325 mg Tablet PO PRN (12:58)
[2023-06-06] MEDS ORDERED: Acetaminophen/Codeine 30-300mg Tablet PO PRN (12:58)
[2023-06-06] MEDS ORDERED: fentaNYL 50 mcg/mL 1 mL Vial SLOW IVP PRN (12:58)
[2023-06-06] MEDS ORDERED: Benzocaine/Menthol 1 LOZ LOZ PO PRN (13:00)
[2023-06-06] MEDS ORDERED: Phenol 177 ML BOT PO PRN (13:00)
[2023-06-06] MEDS ORDERED: tiZANidine HCl 4 MG TAB PO PRN (13:01)
[2023-06-06 14:59] VITALS: BMI 25.4
[2023-06-06] MEDS: CEFAZOLIN 2 GM in Sodium Chloride 0.9% 100 ML IVPB SCH (17:57)
[2023-06-06] MEDS: Atorvastatin Calcium 40 MG TAB PO SCH (20:35)
[2023-06-06] MEDS: Dexamethasone 4 MG TAB PO SCH (20:35)
[2023-06-07] MEDS: CEFAZOLIN 2 GM in Sodium Chloride 0.9% 100 ML IVPB SCH ×3 (01:35→17:39)
[2023-06-07] MEDS: Dexamethasone 4 MG TAB PO SCH ×4 (01:35→19:42)
[2023-06-07 05:55] LABS: #Monocytes 0.2 thou/uL (0.11-0.59); #Neutrophils 9.2 thou/uL (1.40-6.50); %Lymphocytes 5.5 % (21.0-51.0); %Monocytes 1.9 % (0.0-10.0); Hemoglobin 8.3 g/dL (14.0-18.0); Mean Corpuscular HGB CONC 29.6 g/dL (32.0-36.0); Mean Corpuscular Volume 91.2 fl (78.0-98.0); Mean Platelet Volume 8.5 fL (7.4-10.4); Platelet Count 392 10x3/uL (130-400); RBC Distribution Width 16.9 % (11.5-14.5); Red Blood Cell (RBC) Count 3.07 mill/uL (4.70-6.10)
[2023-06-07 06:23] LABS: Anion Gap 13 mmol/L (10-20); BUN (Urea Nitrogen) 23 mg/dL (8.4-25.7); Calc. Creatinine Clearance 79 mL/min (70-130); Calcium 8.9 mg/dL (7.8-10.44); Carbon Dioxide 25 mmol/L (23-31); Chloride 104 mmol/L (98-107); Estimated GFR 88; Glucose 186 mg/dL (80-115); Potassium 4.8 mmol/L (3.5-5.1); Sodium 137 mmol/L (136-145)
[2023-06-07] MEDS: Folic Acid 1 MG TAB PO SCH (09:41)
[2023-06-07] MEDS: Sertraline 100 MG TAB PO SCH (09:42)
[2023-06-07 11:21] LABS: RBC Count-Automated (BF) 64522 /cu.mm; WBC/Nucleated-Auto (BF) 458 /cu.mm
[2023-06-07 12:07] LABS: Tube # EDTA
[2023-06-07 12:08] LABS: BF Color Red; Clarity Cloudy/Turbid (Clear)
[2023-06-07 12:10] LABS: BF Segmented Neutrophils 93 %; Cell Count Non Hematic 2 %; Lymphocytes 5 %
[2023-06-07] MEDS: Atorvastatin Calcium 40 MG TAB PO SCH (19:42)
[2023-06-08] MEDS: Dexamethasone 4 MG TAB PO SCH ×3 (01:40→15:11)
[2023-06-08] MEDS: CEFAZOLIN 2 GM in Sodium Chloride 0.9% 100 ML IVPB SCH ×2 (01:40→08:30)
[2023-06-08] MEDS: Folic Acid 1 MG TAB PO SCH (08:31)
[2023-06-08] MEDS: Sertraline 100 MG TAB PO SCH (08:31)
[2023-06-08 16:47] VITALS: BP 122/77; TEMP 97.5
[2023-06-08] MEDS ORDERED: Dexamethasone 1 MG TAB PO SCH (20:00)
[2023-06-10] MEDS ORDERED: Dexamethasone 1 MG TAB PO SCH (20:00)
[2023-06-12] MEDS ORDERED: Dexamethasone 1 MG TAB PO SCH (20:00)
== END 2023-06-08 17:30 | disposition home or self-care (01) | DRG 982 ==
LOC: SDC 07:36 → SURG B 12:56 → OBSVTOIN 06-07 09:03
PROVIDERS: ADMIT Surgery; ATTEND Surgery
PROC: 0R910ZZ Drainage of Cervical Vertebral Joint, Open Approach (ICD-10-PCS; principal; 2023-06-06)
PROC: 0PB30ZX Excision of Cervical Vertebra, Open Approach, Diagnostic (ICD-10-PCS; 2023-06-06)
PROC: 3E033XZ Introduction of Vasopressor into Peripheral Vein, Percutaneous Approach (ICD-10-PCS; 2023-06-07)
DX: G97.61 Postprocedural hematoma of a nervous system organ or structure following a nervous system procedure (principal); D84.89 Other immunodeficiencies; I82.C11 Acute embolism and thrombosis of right internal jugular vein; E78.5 Hyperlipidemia, unspecified; Z79.899 Other long term (current) drug therapy
CPT/HCPCS: 36415; 80048; 82150; 85025; 85060; 86140; 86850; 86900; 86901; 87040; 87070; 87205; 88307; 88342; 89051; J1100; J2405; J2704; J3490; J8540

== ENCOUNTER 2023-06-14 13:27 | Inpatient (IN) | payer MEDICARE, OTHER ==
[~2023-06-14 13:27] MED LIST changes: -Magnevist 469MG/ML 20 ML VIAL ONE
[2023-06-14 14:06] LABS: #Eosinphils 0.1 thou/uL (0.0-0.7); #Monocytes 0.7 thou/uL (0.11-0.59); #Neutrophils 9.3 thou/uL (1.40-6.50); %Basophils 0.1 % (0.0-1.0); %Eosinophils 1.3 % (0.0-10.0); %Lymphocytes 7.6 % (21.0-51.0); %Monocytes 6.7 % (0.0-10.0); %Neutrophils 83.9 % (42.0-75.0); Hematocrit 27.5 % (42.0-52.0); Hemoglobin 8.1 g/dL (14.0-18.0); Mean Corpuscular HGB CONC 29.5 g/dL (32.0-36.0); Mean Corpuscular Hemoglobin 26.3 pg (27.0-31.0); Mean Corpuscular Volume 89.3 fl (78.0-98.0); Platelet Count 251 10x3/uL (130-400); RBC Distribution Width 16.5 % (11.5-14.5); Red Blood Cell (RBC) Count 3.08 mill/uL (4.70-6.10); White Blood Cell (WBC) Count 11.1 10x3/uL (4.8-10.8)
[2023-06-14 14:33] LABS: Troponin I Less than 0.010 ng/mL (< 0.028)
[2023-06-14 14:36] LABS: ALT (SGPT) 11 U/L (8-55); AST (SGOT) 11 U/L (5-34); Albumin 3.9 g/dL (3.4-4.8); Alkaline Phosphatase 96 U/L (40-110); Anion Gap 16 mmol/L (10-20); BUN (Urea Nitrogen) 20 mg/dL (8.4-25.7); Bilirubin, Total 0.5 mg/dL (0.2-1.2); Calc. Creatinine Clearance 0 mL/min (70-130); Calcium 8.7 mg/dL (7.8-10.44); Carbon Dioxide 23 mmol/L (23-31); Chloride 105 mmol/L (98-107); Estimated GFR 73; Globulin 2.6 g/dL (2.4-3.5); Glucose 100 mg/dL (80-115); Potassium 3.8 mmol/L (3.5-5.1); Protein, Total 6.5 g/dL (5.8-8.1); Sodium 140 mmol/L (136-145)
[2023-06-14 17:08] LABS: PTT 37.8 sec (22.9-36.1); Prothrombin Time 13.4 sec (12.0-14.7)
[2023-06-14] MEDS ORDERED: Heparin 25,000 units/D5W 500 ML ONE (17:15)
[2023-06-14] MEDS ORDERED: HYDROcodone/Acetaminophen 10/325 mg Tablet PO PRN (17:19)
[2023-06-14] MEDS ORDERED: tiZANidine HCl 4 MG TAB PO PRN (17:19)
[2023-06-14] MEDS ORDERED: Heparin 10,000 UNITS/ 10 ML VIAL SLOW IVP SCH ×2 (17:45→19:30)
[2023-06-14] MEDS ORDERED: Ipratropium/Albuterol 3 ML NEB NEB PRN (20:47)
[2023-06-14] MEDS: Atorvastatin Calcium 40 MG TAB PO SCH (20:47)
[2023-06-14] MEDS: Gabapentin 300 MG CAP PO SCH (20:47)
[2023-06-14] MEDS: Scopolamine 1 mg/72 hour Patch TD SCH (21:04)
[2023-06-14] MEDS ORDERED: Racepinephrine 2.25% 0.5 ML NEB NEB PRN (22:50)
[2023-06-14] MEDS ORDERED: Racepinephrine 2.25% 0.5 ML NEB ONE (22:52)
[2023-06-15] MEDS ORDERED: Racepinephrine 2.25% 0.5 ML NEB NEB PRN (00:54)
[2023-06-15 06:17] LABS: #Eosinphils 0.1 thou/uL (0.0-0.7); #Monocytes 0.8 thou/uL (0.11-0.59); #Neutrophils 7.6 thou/uL (1.40-6.50); %Basophils 0.1 % (0.0-1.0); %Eosinophils 1.4 % (0.0-10.0); %Lymphocytes 7.7 % (21.0-51.0); %Monocytes 8.8 % (0.0-10.0); %Neutrophils 81.6 % (42.0-75.0); Hematocrit 27.4 % (42.0-52.0); Hemoglobin 8.1 g/dL (14.0-18.0); Mean Corpuscular HGB CONC 29.6 g/dL (32.0-36.0); Mean Corpuscular Volume 88.1 fl (78.0-98.0); Mean Platelet Volume 9.3 fL (7.4-10.4); Platelet Count 248 10x3/uL (130-400); RBC Distribution Width 16.7 % (11.5-14.5); Red Blood Cell (RBC) Count 3.11 mill/uL (4.70-6.10); White Blood Cell (WBC) Count 9.4 10x3/uL (4.8-10.8)
[2023-06-15 06:30] LABS: Anion Gap 13 mmol/L (10-20); BUN (Urea Nitrogen) 18 mg/dL (8.4-25.7); Calc. Creatinine Clearance 80 mL/min (70-130); Calcium 8.8 mg/dL (7.8-10.44); Carbon Dioxide 25 mmol/L (23-31); Chloride 103 mmol/L (98-107); Estimated GFR 82; Glucose 115 mg/dL (80-115); Potassium 3.7 mmol/L (3.5-5.1); Sodium 137 mmol/L (136-145)
[2023-06-15] MEDS: Sertraline 100 MG TAB PO SCH (08:32)
[2023-06-15] MEDS: Gabapentin 300 MG CAP PO SCH ×3 (08:32→20:07)
[2023-06-15] MEDS: Pantoprazole 40 MG VIAL IVP SCH (08:32)
[2023-06-15] MEDS: Heparin 25,000 units/D5W 500 ML IVPB SCH (10:55)
[2023-06-15 19:55] LABS: PTT 129.3 sec (22.9-36.1)
[2023-06-15] MEDS: Atorvastatin Calcium 40 MG TAB PO SCH (20:08)
[2023-06-16 04:28] LABS: #Eosinphils 0.1 thou/uL (0.0-0.7); #Monocytes 0.7 thou/uL (0.11-0.59); #Neutrophils 7.3 thou/uL (1.40-6.50); %Basophils 0.1 % (0.0-1.0); %Eosinophils 0.9 % (0.0-10.0); %Lymphocytes 7.6 % (21.0-51.0); %Monocytes 8.4 % (0.0-10.0); %Neutrophils 82.7 % (42.0-75.0); Hematocrit 26.4 % (42.0-52.0); Mean Corpuscular HGB CONC 30.3 g/dL (32.0-36.0); Mean Corpuscular Hemoglobin 26.3 pg (27.0-31.0); Mean Corpuscular Volume 86.8 fl (78.0-98.0); Platelet Count 209 10x3/uL (130-400); RBC Distribution Width 16.3 % (11.5-14.5); Red Blood Cell (RBC) Count 3.04 mill/uL (4.70-6.10); White Blood Cell (WBC) Count 8.8 10x3/uL (4.8-10.8)
[2023-06-16 04:52] LABS: Anion Gap 12 mmol/L (10-20); BUN (Urea Nitrogen) 20 mg/dL (8.4-25.7); Calc. Creatinine Clearance 86 mL/min (70-130); Calcium 8.9 mg/dL (7.8-10.44); Carbon Dioxide 26 mmol/L (23-31); Chloride 101 mmol/L (98-107); Estimated GFR 90; Glucose 122 mg/dL (80-115); Potassium 3.9 mmol/L (3.5-5.1); Sodium 135 mmol/L (136-145)
[2023-06-16] MEDS: Gabapentin 300 MG CAP PO SCH ×3 (08:03→21:19)
[2023-06-16] MEDS: Sertraline 100 MG TAB PO SCH (08:03)
[2023-06-16] MEDS: Pantoprazole 40 MG VIAL IVP SCH (08:04)
[2023-06-16] MEDS: Heparin 25,000 units/D5W 500 ML IVPB SCH (08:21)
[2023-06-16] MEDS ORDERED: Sterile Water 10 ML VIAL FS PRN (14:45)
[2023-06-16] MEDS ORDERED: Ziprasidone 20 MG VIAL IM SCH (14:45)
[2023-06-16] MEDS ORDERED: Haloperidol Lactate 5 MG/ML VIAL ONE (16:52)
[2023-06-16] MEDS ORDERED: Haloperidol Lactate 5 MG/ML VIAL IM SCH (17:15)
[2023-06-16] MEDS ORDERED: Propofol 1,000 MG/100 ML VIAL IV ONE (17:59)
[2023-06-16] MEDS ORDERED: Morphine 2 MG/ML VIAL SLOW IVP PRN ×2 (18:00)
[2023-06-16] MEDS ORDERED: Propofol BOLUS 1,000 MG/100 ML VIAL IV PRN (18:00)
[2023-06-16] MEDS ORDERED: Ventilator Sedation Protocol 1 EACH FS SCH (18:00)
[2023-06-16] MEDS ORDERED: DISCONTINUE PREVIOUS NARCOTIC PAIN MEDICATIONS AND BENZODIAZEPINES FS SCH (18:00)
[2023-06-16] MEDS ORDERED: Fentanyl BOLUS 250 ML IVPB PRN (18:00)
[2023-06-16] MEDS ORDERED: Dexamethasone 10 MG in Sodium Chloride 0.9% 50 ML IVPB SCH (18:30)
[2023-06-16] MEDS: Propofol 1,000 MG/100 ML VIAL IV PRN (19:05)
[2023-06-16] MEDS: Lorazepam 2 MG/ML VIAL SLOW IVP PRN (19:09)
[2023-06-16] MEDS: Fentanyl CADD 100 ML IV SCH (19:41)
[2023-06-16] MEDS: cefTRIAXone\\ROCEPHIN 1 GM in Sodium Chloride 0.9% 100 ML IVPB SCH (19:42)
[2023-06-16] MEDS: Dexamethasone 10 MG/ML VIAL IVPB SCH (19:42)
[2023-06-16] MEDS ORDERED: Rocuronium Bromide 10 MG/ML (10ML VIAL) IVP SCH (20:00)
[2023-06-16] MEDS ORDERED: PROPOFOL 200 MG/20 ML VIAL IV SCH (20:00)
[2023-06-16] MEDS ORDERED: QUEtiapine 25 MG TAB PO SCH (21:00)
[2023-06-16] MEDS: Atorvastatin Calcium 40 MG TAB PO SCH (21:19)
[2023-06-17] MEDS: Propofol 1,000 MG/100 ML VIAL IV PRN ×4 (00:12→17:52)
[2023-06-17 04:47] LABS: #Monocytes 0.1 thou/uL (0.11-0.59); #Neutrophils 2.9 thou/uL (1.40-6.50); %Lymphocytes 5.7 % (21.0-51.0); %Monocytes 1.6 % (0.0-10.0); %Neutrophils 92.7 % (42.0-75.0); Hematocrit 22.2 % (42.0-52.0); Hemoglobin 6.6 g/dL (14.0-18.0); Mean Corpuscular HGB CONC 29.7 g/dL (32.0-36.0); Mean Corpuscular Hemoglobin 25.9 pg (27.0-31.0); Mean Corpuscular Volume 87.1 fl (78.0-98.0); Mean Platelet Volume 9.7 fL (7.4-10.4); Platelet Count 174 10x3/uL (130-400); RBC Distribution Width 16.3 % (11.5-14.5); Red Blood Cell (RBC) Count 2.55 mill/uL (4.70-6.10); White Blood Cell (WBC) Count 3.2 10x3/uL (4.8-10.8)
[2023-06-17 05:08] LABS: Anion Gap 12 mmol/L (10-20); BUN (Urea Nitrogen) 17 mg/dL (8.4-25.7); Calc. Creatinine Clearance 92 mL/min (70-130); Calcium 8.1 mg/dL (7.8-10.44); Carbon Dioxide 23 mmol/L (23-31); Chloride 104 mmol/L (98-107); Estimated GFR 94; Glucose 154 mg/dL (80-115); Potassium 3.9 mmol/L (3.5-5.1); Sodium 135 mmol/L (136-145)
[2023-06-17 05:34] LABS: #Neutrophils 2.7 thou/uL (1.40-6.50); %Lymphocytes 7.3 % (21.0-51.0); %Neutrophils 91.4 % (42.0-75.0); Hematocrit 21.6 % (42.0-52.0); Hemoglobin 6.6 g/dL (14.0-18.0); Mean Corpuscular HGB CONC 30.6 g/dL (32.0-36.0); Mean Corpuscular Hemoglobin 26.3 pg (27.0-31.0); Mean Corpuscular Volume 86.1 fl (78.0-98.0); Mean Platelet Volume 9.7 fL (7.4-10.4); Platelet Count 173 10x3/uL (130-400); RBC Distribution Width 16.2 % (11.5-14.5); Red Blood Cell (RBC) Count 2.51 mill/uL (4.70-6.10)
[2023-06-17] MEDS: Heparin 25,000 units/D5W 500 ML IVPB SCH (06:17)
[2023-06-17 07:14] LABS: Actual Bicarbonate (HCO3a) 24.6 mEq/L (22-28); Base Excess (BEa) 0.8 mEq/L (-2.0 to +3.0); CO2 Tension 35.4 mmHg (35.0-45.0); Calcium, Ionized (arterial) 1.09 mmol/L (1.12-1.30); Carboxyhemoglobin (COHb) 1.2 gm% (0.0-3.0); Hematocrit-ABG 23 % (42.0-52.0); Hemoglobin (Hb) 7.7 g/dL (14.0-18.0); O2 Tension (PaO2), arterial 108.7 mmHg (> 80.0); Potassium - ABG Lab 4.31 mmol/L (3.70-5.30); pH, Arterial 7.459 (7.35-7.45)
[2023-06-17 07:17] LABS: Puncture Site LRA
[2023-06-17 07:51] LABS: Bacteria/HPF None Seen HPF (None Seen); Bilirubin Negative (Negative); Blood, Urine Negative (Negative); CAUTI Indications for Culture Fever or rigors; Clarity Clear (Clear); Glucose, Urine (Dipstick) Normal (Negative); Ketone, Urine Negative (Negative); Leukocyte Negative Leu/uL (Negative); Nitrite Negative (Negative); Protein, Urine (Dipstick) 20 mg/dL (Neg-Trace); RBC/HPF 0-3 HPF (0-3); Specific Gravity, Urine 1.021 (1.002-1.036); Squamous Epithelial None Seen HPF (0-3); Urobilinogen Normal mg/dL (Less than 2); WBC/HPF 0-3 HPF (0-3); pH, Urine 6.5 (5.0-9.0)
[2023-06-17 07:54] LABS: Urine Culture Reflex No No
[2023-06-17] MEDS: Gabapentin 300 MG CAP PO SCH ×3 (09:25→21:01)
[2023-06-17] MEDS: Sertraline 100 MG TAB PO SCH (09:25)
[2023-06-17] MEDS: Pantoprazole 40 MG VIAL IVP SCH (09:26)
[2023-06-17 10:28] LABS: Hematocrit 25.7 % (42.0-52.0)
[2023-06-17] MEDS ORDERED: Sodium Bicarbonate Tab 325 MG TAB PER TUBE SCH (14:15)
[2023-06-17] MEDS ORDERED: Pancrelipase DR 12,000 1 CAP PER TUBE SCH (14:15)
[2023-06-17] MEDS: Dexamethasone 10 MG/ML VIAL IVPB SCH (17:51)
[2023-06-17] MEDS: cefTRIAXone\\ROCEPHIN 1 GM in Sodium Chloride 0.9% 100 ML IVPB SCH (17:51)
[2023-06-17] MEDS: Scopolamine 1 mg/72 hour Patch TD SCH (21:00)
[2023-06-17] MEDS: Atorvastatin Calcium 40 MG TAB PO SCH (21:01)
[2023-06-18] MEDS: Propofol 1,000 MG/100 ML VIAL IV PRN ×5 (00:19→22:50)
[2023-06-18] MEDS: Heparin 25,000 units/D5W 500 ML IVPB SCH (02:17)
[2023-06-18 04:41] LABS: #Monocytes 0.3 thou/uL (0.11-0.59); #Neutrophils 6.2 thou/uL (1.40-6.50); %Lymphocytes 4.5 % (21.0-51.0); %Monocytes 4.5 % (0.0-10.0); %Neutrophils 90.6 % (42.0-75.0); Hematocrit 25.1 % (42.0-52.0); Hemoglobin 7.8 g/dL (14.0-18.0); Mean Corpuscular HGB CONC 31.1 g/dL (32.0-36.0); Mean Corpuscular Hemoglobin 26.9 pg (27.0-31.0); Mean Corpuscular Volume 86.6 fl (78.0-98.0); Mean Platelet Volume 9.2 fL (7.4-10.4); Platelet Count 180 10x3/uL (130-400); RBC Distribution Width 16.1 % (11.5-14.5); White Blood Cell (WBC) Count 6.9 10x3/uL (4.8-10.8)
[2023-06-18 05:04] LABS: Anion Gap 11 mmol/L (10-20); BUN (Urea Nitrogen) 22 mg/dL (8.4-25.7); Calc. Creatinine Clearance 82 mL/min (70-130); Calcium 8.2 mg/dL (7.8-10.44); Carbon Dioxide 25 mmol/L (23-31); Chloride 103 mmol/L (98-107); Estimated GFR 85; Glucose 115 mg/dL (80-115); Potassium 4.3 mmol/L (3.5-5.1); Sodium 135 mmol/L (136-145)
[2023-06-18 05:50] LABS: PTT 137.4 sec (22.9-36.1)
[2023-06-18] MEDS: Fentanyl CADD 100 ML IV SCH (06:54)
[2023-06-18 07:35] LABS: Actual Bicarbonate (HCO3a) 24.1 mEq/L (22-28); Base Excess (BEa) -0.6 mEq/L (-2.0 to +3.0); CO2 Tension 39.7 mmHg (35.0-45.0); Calcium, Ionized (arterial) 1.12 mmol/L (1.12-1.30); Carboxyhemoglobin (COHb) 0.4 gm% (0.0-3.0); Hematocrit-ABG 26 % (42.0-52.0); Hemoglobin (Hb) 8.9 g/dL (14.0-18.0); Potassium - ABG Lab 4.22 mmol/L (3.70-5.30); pH, Arterial 7.401 (7.35-7.45)
[2023-06-18 07:36] LABS: ALV-art Gradient 117.925 mmHg (0-20); Puncture Site LRA
[2023-06-18] MEDS: Gabapentin 300 MG CAP PO SCH ×3 (08:31→21:23)
[2023-06-18] MEDS: Pantoprazole 40 MG VIAL IVP SCH (08:31)
[2023-06-18] MEDS: Sertraline 100 MG TAB PO SCH (08:31)
[2023-06-18] MEDS: cefTRIAXone\\ROCEPHIN 1 GM in Sodium Chloride 0.9% 100 ML IVPB SCH (16:17)
[2023-06-18] MEDS: Lorazepam 2 MG/ML VIAL SLOW IVP PRN (19:17)
[2023-06-18] MEDS: Atorvastatin Calcium 40 MG TAB PO SCH (21:23)
[2023-06-19 03:33] LABS: #Monocytes 0.4 thou/uL (0.11-0.59); #Neutrophils 5.4 thou/uL (1.40-6.50); %Basophils 0.2 % (0.0-1.0); %Eosinophils 0.3 % (0.0-10.0); %Lymphocytes 5.1 % (21.0-51.0); %Monocytes 6.1 % (0.0-10.0); %Neutrophils 88.1 % (42.0-75.0); Hematocrit 26.7 % (42.0-52.0); Hemoglobin 8.3 g/dL (14.0-18.0); Mean Corpuscular HGB CONC 31.1 g/dL (32.0-36.0); Mean Corpuscular Hemoglobin 26.8 pg (27.0-31.0); Mean Corpuscular Volume 86.1 fl (78.0-98.0); Mean Platelet Volume 9.3 fL (7.4-10.4); Platelet Count 177 10x3/uL (130-400); RBC Distribution Width 16.3 % (11.5-14.5); White Blood Cell (WBC) Count 6.1 10x3/uL (4.8-10.8)
[2023-06-19 03:54] LABS: Anion Gap 13 mmol/L (10-20); BUN (Urea Nitrogen) 21 mg/dL (8.4-25.7); Calc. Creatinine Clearance 88 mL/min (70-130); Calcium 8.3 mg/dL (7.8-10.44); Carbon Dioxide 24 mmol/L (23-31); Chloride 103 mmol/L (98-107); Estimated GFR 92; Glucose 113 mg/dL (80-115); Potassium 3.8 mmol/L (3.5-5.1); Sodium 136 mmol/L (136-145)
[2023-06-19] MEDS: Propofol 1,000 MG/100 ML VIAL IV PRN ×3 (04:26→15:05)
[2023-06-19] MEDS: Fentanyl CADD 100 ML IV SCH (04:26)
[2023-06-19 07:53] LABS: Actual Bicarbonate (HCO3a) 21.3 mEq/L (22-28); Base Excess (BEa) -3.4 mEq/L (-2.0 to +3.0); CO2 Tension 36.6 mmHg (35.0-45.0); Calcium, Ionized (arterial) 1.13 mmol/L (1.12-1.30); Carboxyhemoglobin (COHb) 0.8 gm% (0.0-3.0); Hematocrit-ABG 27 % (42.0-52.0); Hemoglobin (Hb) 9.3 g/dL (14.0-18.0); pH, Arterial 7.382 (7.35-7.45)
[2023-06-19 07:55] LABS: Puncture Site RRA
[2023-06-19] MEDS: Sertraline 100 MG TAB PO SCH (08:17)
[2023-06-19] MEDS: Gabapentin 300 MG CAP PO SCH ×3 (08:18→21:20)
[2023-06-19] MEDS: Pantoprazole 40 MG VIAL IVP SCH (08:18)
[2023-06-19] MEDS ORDERED: Acetylcysteine (MUCOMYST) 200 MG/ML (10 ML VIAL) NEB SCH ×2 (11:30→18:30)
[2023-06-19] MEDS: Ipratropium/Albuterol 3 ML NEB NEB SCH ×2 (11:42→18:48)
[2023-06-19] MEDS: Heparin 25,000 units/D5W 500 ML IVPB SCH (14:17)
[2023-06-19] MEDS: cefTRIAXone\\ROCEPHIN 1 GM in Sodium Chloride 0.9% 100 ML IVPB SCH (18:16)
[2023-06-19] MEDS: Acetylcysteine (MUCOMYST) 200 MG/ML (10 ML VIAL) NEB SCH (18:50)
[2023-06-19] MEDS: Atorvastatin Calcium 40 MG TAB PO SCH (21:20)
[2023-06-20] MEDS: Acetaminophen 325 MG TAB PO PRN ×2 (00:10→23:01)
[2023-06-20] MEDS: Fentanyl CADD 100 ML IV SCH ×2 (00:10→19:19)
[2023-06-20] MEDS: Propofol 1,000 MG/100 ML VIAL IV PRN ×3 (00:40→17:00)
[2023-06-20 04:36] LABS: #Monocytes 0.5 thou/uL (0.11-0.59); #Neutrophils 7.7 thou/uL (1.40-6.50); %Basophils 0.1 % (0.0-1.0); %Eosinophils 0.5 % (0.0-10.0); %Monocytes 5.9 % (0.0-10.0); Hematocrit 26.5 % (42.0-52.0); Hemoglobin 7.9 g/dL (14.0-18.0); Mean Corpuscular HGB CONC 29.8 g/dL (32.0-36.0); Mean Corpuscular Hemoglobin 25.9 pg (27.0-31.0); Mean Corpuscular Volume 86.9 fl (78.0-98.0); Mean Platelet Volume 9.6 fL (7.4-10.4); Platelet Count 154 10x3/uL (130-400); RBC Distribution Width 16.7 % (11.5-14.5); Red Blood Cell (RBC) Count 3.05 mill/uL (4.70-6.10); White Blood Cell (WBC) Count 8.8 10x3/uL (4.8-10.8)
[2023-06-20 05:02] LABS: Anion Gap 11 mmol/L (10-20); BUN (Urea Nitrogen) 22 mg/dL (8.4-25.7); Calc. Creatinine Clearance 73 mL/min (70-130); Calcium 8.1 mg/dL (7.8-10.44); Carbon Dioxide 26 mmol/L (23-31); Chloride 99 mmol/L (98-107); Estimated GFR 74; Glucose 159 mg/dL (80-115); Sodium 132 mmol/L (136-145)
[2023-06-20 05:07] LABS: PTT Greater than 250.0 sec (22.9-36.1)
[2023-06-20 07:19] LABS: Actual Bicarbonate (HCO3a) 25.2 mEq/L (22-28); Base Excess (BEa) -0.1 mEq/L (-2.0 to +3.0); CO2 Tension 43.6 mmHg (35.0-45.0); Calcium, Ionized (arterial) 1.12 mmol/L (1.12-1.30); Hematocrit-ABG 26 % (42.0-52.0); Hemoglobin (Hb) 8.9 g/dL (14.0-18.0); O2 Tension (PaO2), arterial 90.5 mmHg (> 80.0); Potassium - ABG Lab 4.06 mmol/L (3.70-5.30); Puncture Site RRA; pH, Arterial 7.379 (7.35-7.45)
[2023-06-20] MEDS: Acetylcysteine (MUCOMYST) 200 MG/ML (10 ML VIAL) NEB SCH (08:21)
[2023-06-20] MEDS: Ipratropium/Albuterol 3 ML NEB NEB SCH ×3 (08:21→18:38)
[2023-06-20] MEDS: Gabapentin 300 MG CAP PO SCH ×3 (08:26→20:57)
[2023-06-20] MEDS: Pantoprazole 40 MG VIAL IVP SCH (08:27)
[2023-06-20] MEDS: Sertraline 100 MG TAB PO SCH (08:27)
[2023-06-20] MEDS: Heparin 25,000 units/D5W 500 ML IVPB SCH (12:00)
[2023-06-20] MEDS: cefTRIAXone\\ROCEPHIN 1 GM in Sodium Chloride 0.9% 100 ML IVPB SCH (17:00)
[2023-06-20] MEDS: Atorvastatin Calcium 40 MG TAB PO SCH (20:56)
[2023-06-20 21:34] LABS: PTT 246.2 sec (22.9-36.1)
[2023-06-20] MEDS: Scopolamine 1 mg/72 hour Patch TD SCH (23:02)
[2023-06-21 04:03] LABS: #Eosinphils 0.1 thou/uL (0.0-0.7); #Monocytes 0.5 thou/uL (0.11-0.59); #Neutrophils 6.6 thou/uL (1.40-6.50); %Basophils 0.1 % (0.0-1.0); %Eosinophils 0.9 % (0.0-10.0); %Monocytes 6.7 % (0.0-10.0); %Neutrophils 86.8 % (42.0-75.0); Hematocrit 25.2 % (42.0-52.0); Hemoglobin 7.6 g/dL (14.0-18.0); Mean Corpuscular HGB CONC 30.2 g/dL (32.0-36.0); Mean Corpuscular Volume 86.3 fl (78.0-98.0); Mean Platelet Volume 9.3 fL (7.4-10.4); Platelet Count 163 10x3/uL (130-400); RBC Distribution Width 16.7 % (11.5-14.5); Red Blood Cell (RBC) Count 2.92 mill/uL (4.70-6.10); White Blood Cell (WBC) Count 7.6 10x3/uL (4.8-10.8)
[2023-06-21 04:30] LABS: Anion Gap 13 mmol/L (10-20); BUN (Urea Nitrogen) 24 mg/dL (8.4-25.7); Calc. Creatinine Clearance 90 mL/min (70-130); Calcium 8.3 mg/dL (7.8-10.44); Carbon Dioxide 26 mmol/L (23-31); Chloride 100 mmol/L (98-107); Estimated GFR 93; Glucose 153 mg/dL (80-115); Potassium 3.9 mmol/L (3.5-5.1); Sodium 135 mmol/L (136-145)
[2023-06-21] MEDS: Propofol 1,000 MG/100 ML VIAL IV PRN ×3 (05:36→16:33)
[2023-06-21] MEDS: Ipratropium/Albuterol 3 ML NEB NEB SCH (06:58)
[2023-06-21 07:16] LABS: Actual Bicarbonate (HCO3a) 25.8 mEq/L (22-28); Base Excess (BEa) 1.6 mEq/L (-2.0 to +3.0); Calcium, Ionized (arterial) 1.13 mmol/L (1.12-1.30); Hematocrit-ABG 24 % (42.0-52.0); Hemoglobin (Hb) 8.1 g/dL (14.0-18.0); Potassium - ABG Lab 3.82 mmol/L (3.70-5.30); pH, Arterial 7.439 (7.35-7.45)
[2023-06-21 07:19] LABS: Puncture Site RRA
[2023-06-21] MEDS: Gabapentin 300 MG CAP PO SCH ×2 (08:04→15:38)
[2023-06-21] MEDS: Sertraline 100 MG TAB PO SCH (08:04)
[2023-06-21] MEDS: Pantoprazole 40 MG VIAL IVP SCH (08:10)
[2023-06-21 08:15] LABS: PTT 135.6 sec (22.9-36.1)
[2023-06-21 08:56] VITALS: BMI 26.6
[2023-06-21 10:44] VITALS: BP 101/60
[2023-06-21] MEDS ORDERED: Iopamidol-370 76% 500 ML MDV (1 ML CHARGE) ONE (11:35)
[2023-06-21] MEDS: Fentanyl CADD 100 ML IV SCH (12:48)
[2023-06-21 16:06] VITALS: TEMP 97.1
[2023-06-21] MEDS: Lorazepam 2 MG/ML VIAL SLOW IVP PRN (16:15)
[2023-06-23] MEDS ORDERED: Scopolamine 1 mg/72 hour Patch TD SCH (09:00)
== END 2023-06-21 16:55 | disposition short-term general hospital (02) | DRG 299 ==
LOC: ERS 13:27 → EEVIPCON 16:41 → IMCU/EMU 16:41 → CCU 06-16 17:39
PROVIDERS: ADMIT Family Medicine; ATTEND Family Medicine
PROC: 5A1955Z Respiratory Ventilation, Greater than 96 Consecutive Hours (ICD-10-PCS; 2023-06-16)
PROC: 30233N1 Transfusion of Nonautologous Red Blood Cells into Peripheral Vein, Percutaneous Approach (ICD-10-PCS; principal; 2023-06-17)
PROC: 4A133R1 Monitoring of Arterial Saturation, Peripheral, Percutaneous Approach (ICD-10-PCS; 2023-06-17)
DX: I82.C11 Acute embolism and thrombosis of right internal jugular vein (principal); G93.41 Metabolic encephalopathy; J96.01 Acute respiratory failure with hypoxia; I87.1 Compression of vein; C34.90 Malignant neoplasm of unspecified part of unspecified bronchus or lung; D62 Acute posthemorrhagic anemia; Z51.5 Encounter for palliative care; E78.5 Hyperlipidemia, unspecified; F39 Unspecified mood [affective] disorder; Z88.5 Allergy status to narcotic agent; Z79.899 Other long term (current) drug therapy; Z79.82 Long term (current) use of aspirin; I10 Essential (primary) hypertension; Z98.890 Other specified postprocedural states; Z87.891 Personal history of nicotine dependence; Z79.01 Long term (current) use of anticoagulants
CPT/HCPCS: 36415; 36416; 36430; 36600; 70491; 70498; 71045; 71275; 80048; 80053; 81001; 82805; 84484; 85025; 85379; 85610; 85730; 86850; 86900; 86901; 87040; 93005; 94002; 94003; 96374; C9113; J0696; J1100; J1630; J1644; J2060; J2704; J3010; J3486; J3490; J7608; J7620; P9016; Q9967